=== PATIENT | female | born 2000 | race Caucasian/White ===

== ENCOUNTER 2021-01-12 12:45 | Emergency (ER) | payer SELFPAY ==
[~2021-01-12] VITALS: Ht 157.5 cm; Wt 65.0 kg
[2021-01-12 15:18] LABS: BASOPHILS % 0.3 % (0.0-2.0); EOSINOPHILS % 1.1 % (0.0-5.0); HEMATOCRIT. 38.3 % (36.0-48.0); HEMOGLOBIN. 12.5 g/dL (12.0-16.0); LYMPHOCYTES % 19.8 % (20.0-50.0); MEAN CORPUSCULAR HEMOGLOBIN 26.2 pg (28.0-32.0); MEAN CORPUSCULAR VOLUME 80.1 fL (81.0-99.0); MEAN PLATELET VOLUME 9.1 fl (7.4-10.4); MONOCYTES % 8.5 % (2.0-8.0); NEUTROPHILS % 70.3 % (40.0-76.0); PLATELET 348 x1000/uL (130-400); RED BLOOD CELL COUNT 4.78 mill/uL (4.2-5.4); RED CELL DISTRIBUTION WIDTH 17.1 % (11.6-14.6)
[2021-01-12 15:23] LABS: CHLORIDE 105 mEq/L (98-107)
[2021-01-12 15:26] LABS: ETHANOL BLOOD < 10 mg/dL
[2021-01-12] MEDS ORDERED: LORAZEPAM 2MG/ML CPJ IV ONE (16:00)
[2021-01-12] MEDS ORDERED: SODIUM CHLORIDE 0.9% 1,000 ML IV ONE (16:00)
[2021-01-12 16:10] LABS: HCG SCREEN NEGATIVE
[2021-01-12 16:15] LABS: *BARBITURATES SCREEN URINE NEGATIVE (NEGATIVE); *BENZODIAZEPINES SCREEN URINE NEGATIVE (NEGATIVE); *COCAINE SCREEN URINE NEGATIVE (NEGATIVE); OPIATES URINE SCREEN NEGATIVE (NEGATIVE)
[2021-01-12 16:16] LABS: PHENCYCLIDINE URINE SCREEN NEGATIVE (NEGATIVE)
[2021-01-12 16:24] LABS: METHADONE URINE SCREEN NEGATIVE (NEGATIVE)
[2021-01-12 16:27] LABS: *AMPHETAMINES SCREEN URINE PRESUMTIVE POSITIVE (NEGATIVE); CANNABINOID URINE SCREEN PRESUMTIVE POSITIVE (NEGATIVE)
[2021-01-12] MEDS ORDERED: POTASSIUM CHLORIDE 20MEQ TABLET SR PO ONE (16:30)
[2021-01-12 18:49] VITALS: BP 120/83
== END 2021-01-12 18:50 | disposition home or self-care (01) ==
LOC: ER 12:45
DX: F15.129 Other stimulant abuse with intoxication, unspecified (principal); F12.129 Cannabis abuse with intoxication, unspecified; E87.6 Hypokalemia; R03.0 Elevated blood-pressure reading, without diagnosis of hypertension; R00.0 Tachycardia, unspecified; Z32.02 Encounter for pregnancy test, result negative; Z71.51 Drug abuse counseling and surveillance of drug abuser
CPT/HCPCS: 36415; 71045; 80053; 80305; 80320; 81025; 84703; 85025; 93005; 96361; 96374; 99285; J2060; J7030; Z7610; G0480

== ENCOUNTER 2021-02-27 17:49 | Emergency (ER) | payer SELFPAY ==
[~2021-02-27] VITALS: Ht 152.4 cm; Wt 55.0 kg
[2021-02-27 20:53] LABS: CLARITY URINE CLOUDY (CLEAR); COLOR URINE YELLOW (YELLOW); KETONES URINE 1+ (NEGATIVE); LEUKOCYTE ESTERASE URINE NEGATIVE (NEGATIVE); NITRITE URINE NEGATIVE (NEGATIVE); OCCULT BLOOD URINE TRACE (NEGATIVE); PH URINE 5.5 (4.5-8.0); PROTEIN URINE TRACE (NEGATIVE); SPECIFIC GRAVITY URINE 1.033 (1.005-1.030); UROBILINOGEN URINE 0.2 E.U./dL (0.2-1.0)
[2021-02-27 21:01] LABS: BASOPHILS % 0.4 % (0.0-2.0); EOSINOPHILS % 0.3 % (0.0-5.0); HEMATOCRIT. 34.2 % (36.0-48.0); HEMOGLOBIN. 11.3 g/dL (12.0-16.0); LYMPHOCYTES % 25.4 % (20.0-50.0); MEAN CORPUSCULAR HEMOGLOBIN 27.3 pg (28.0-32.0); MEAN CORPUSCULAR VOLUME 82.8 fL (81.0-99.0); MEAN PLATELET VOLUME 8.9 fl (7.4-10.4); MONOCYTES % 5.9 % (2.0-8.0); PLATELET 308 x1000/uL (130-400); RED BLOOD CELL COUNT 4.13 mill/uL (4.2-5.4); RED CELL DISTRIBUTION WIDTH 16.7 % (11.6-14.6)
[2021-02-27 21:02] LABS: *BARBITURATES SCREEN URINE NEGATIVE (NEGATIVE); *BENZODIAZEPINES SCREEN URINE NEGATIVE (NEGATIVE); *COCAINE SCREEN URINE NEGATIVE (NEGATIVE)
[2021-02-27 21:03] LABS: METHADONE URINE SCREEN NEGATIVE (NEGATIVE); OPIATES URINE SCREEN NEGATIVE (NEGATIVE); PHENCYCLIDINE URINE SCREEN NEGATIVE (NEGATIVE)
[2021-02-27 21:05] LABS: *AMPHETAMINES SCREEN URINE NEGATIVE (NEGATIVE)
[2021-02-27 21:07] LABS: CHLORIDE 107 mEq/L (98-107)
[2021-02-27 21:11] LABS: PROTHROMBIN TIME 10.9 sec (9.6-11.0)
[2021-02-27 21:14] LABS: ETHANOL BLOOD < 10 mg/dL
[2021-02-27] MEDS ORDERED: CEFTRIAXONE 1 G PREMIX 50 ML IV ONE (21:15)
[2021-02-27 21:17] LABS: CANNABINOID URINE SCREEN PRESUMTIVE POSITIVE (NEGATIVE)
[2021-02-27] MEDS ORDERED: KETOROLAC 30MG/ML VIAL IV ONE (22:15)
[2021-02-27] MEDS ORDERED: SODIUM CHLORIDE 0.9% 1,000 ML IV ONE (22:15)
[2021-02-27] MEDS ORDERED: LIDOCAINE HCL 1% 20ML VIAL (Pyxis) INJ INFIL ONE (23:30)
[2021-02-27] MEDS ORDERED: CEFTRIAXONE SODIUM 1 G/VIAL IM ONE (23:30)
[2021-02-27 23:32] VITALS: BP 136/91
[2021-02-27] MEDS ORDERED: OMEP20CA14 MT (23:37)
[2021-02-27] MEDS ORDERED: DOXY100C2 MT (23:37)
== END 2021-02-27 23:46 | disposition home or self-care (01) ==
LOC: ER 17:49
DX: R10.13 Epigastric pain (principal); R10.2 Pelvic and perineal pain; Z20.2 Contact with and (suspected) exposure to infections with a predominantly sexual mode of transmission; R03.0 Elevated blood-pressure reading, without diagnosis of hypertension; D64.9 Anemia, unspecified
CPT/HCPCS: 36415; 76705; 76830; 76856; 80053; 80305; 80320; 81003; 81025; 83690; 85025; 85610; 93005; 96365; 96375; 99285; J0696; J1885; J3490; J7030; G0480

== ENCOUNTER 2021-03-15 17:40 | Emergency (ER) | payer MEDICAID ==
[~2021-03-15] VITALS: Ht 154.9 cm; Wt 61.0 kg
[~2021-03-15 17:40] MED LIST: DOXY100C2 MT; OMEP20CA14 MT
[2021-03-15 19:58] VITALS: BP 126/79
[2021-03-15 21:38] LABS: CLARITY URINE CLEAR (CLEAR); COLOR URINE YELLOW (YELLOW); KETONES URINE NEGATIVE (NEGATIVE); LEUKOCYTE ESTERASE URINE NEGATIVE (NEGATIVE); NITRITE URINE NEGATIVE (NEGATIVE); OCCULT BLOOD URINE NEGATIVE (NEGATIVE); PH URINE 5.5 (4.5-8.0); PROTEIN URINE NEGATIVE (NEGATIVE); SPECIFIC GRAVITY URINE 1.017 (1.005-1.030); UROBILINOGEN URINE 0.2 E.U./dL (0.2-1.0)
[2021-03-18 06:08] LABS: NEISSERIA GONORRHOEAE NAA Negative (Negative)
== END 2021-03-15 22:35 | disposition home or self-care (01) ==
LOC: ER 17:40
DX: R10.2 Pelvic and perineal pain (principal); R30.0 Dysuria; Z86.19 Personal history of other infectious and parasitic diseases
CPT/HCPCS: 76830; 76856; 81003; 81025; 87491; 87591; 99284

== ENCOUNTER 2021-03-17 02:22 | Emergency (ER) | payer MEDICAID ==
[~2021-03-17] VITALS: Ht 152.4 cm; Wt 52.0 kg
[2021-03-17] MEDS ORDERED: AMPICILLIN SOD/SULBACTAM NA 3 G in SODIUM CHLORIDE 0.9% 100 ML IV SCH (03:30)
[2021-03-17] MEDS ORDERED: MORPHINE SULFATE 2 MG/ML CPJ (NOT FOR IM USE) IV ONE (03:30)
[2021-03-17] MEDS ORDERED: DOXYCYCLINE 100 MG in DEXT 5% WATER 100 ML IV SCH (03:30)
[2021-03-17 04:00] LABS: BASOPHILS % 0.4 % (0.0-2.0); EOSINOPHILS % 0.1 % (0.0-5.0); HEMATOCRIT. 32.4 % (36.0-48.0); HEMOGLOBIN. 10.7 g/dL (12.0-16.0); LYMPHOCYTES % 11.4 % (20.0-50.0); MEAN CORPUSCULAR VOLUME 82.2 fL (81.0-99.0); MEAN PLATELET VOLUME 8.8 fl (7.4-10.4); MONOCYTES % 9.5 % (2.0-8.0); NEUTROPHILS % 78.6 % (40.0-76.0); PLATELET 293 x1000/uL (130-400); RED BLOOD CELL COUNT 3.94 mill/uL (4.2-5.4); RED CELL DISTRIBUTION WIDTH 15.5 % (11.6-14.6)
[2021-03-17 04:08] LABS: CHLORIDE 106 mEq/L (98-107)
[2021-03-17 04:11] LABS: PROTHROMBIN TIME 10.6 sec (9.6-11.0)
[2021-03-17 04:23] LABS: HCG SCREEN NEGATIVE
[2021-03-17 05:25] LABS: CLARITY URINE CLEAR (CLEAR); COLOR URINE YELLOW (YELLOW); KETONES URINE NEGATIVE (NEGATIVE); LEUKOCYTE ESTERASE URINE TRACE (NEGATIVE); NITRITE URINE NEGATIVE (NEGATIVE); OCCULT BLOOD URINE NEGATIVE (NEGATIVE); PH URINE 7.5 (4.5-8.0); PROTEIN URINE NEGATIVE (NEGATIVE); SPECIFIC GRAVITY URINE 1.018 (1.005-1.030)
[2021-03-17] MEDS ORDERED: DOXY100C2 MT (05:54)
[2021-03-17] MEDS ORDERED: TOPUD MT (05:54)
[2021-03-17] MEDS ORDERED: METR-167 MT (06:10)
[2021-03-17 07:25] VITALS: BP 118/72
[2021-03-21 08:08] LABS: NEISSERIA GONORRHOEAE NAA Negative (Negative)
== END 2021-03-17 07:42 | disposition home or self-care (01) ==
LOC: ER 02:22
DX: R10.2 Pelvic and perineal pain (principal); F15.10 Other stimulant abuse, uncomplicated; Z79.899 Other long term (current) drug therapy
CPT/HCPCS: 36415; 74176; 80053; 81003; 84703; 85025; 85610; 87210; 87491; 87591; 96365; 96366; 96368; 99284; J0295; J2270; J3490; J7050; J7060; Z7610; 96367

== ENCOUNTER 2021-04-02 21:29 | Emergency (ER) | payer MEDICAID ==
[~2021-04-02] VITALS: Ht 160 cm; Wt 73.0 kg
[~2021-04-02 21:29] MED LIST changes: +METR-167 MT; +TOPUD MT
[2021-04-02] MEDS ORDERED: NAPR-1176 MT (22:13)
[2021-04-02] MEDS ORDERED: IBUPROFEN 600MG TABLET PO ONE (22:15)
[2021-04-03 00:03] VITALS: BP 122/74
== END 2021-04-02 23:00 | disposition home or self-care (01) ==
LOC: ER 21:29
DX: R51.9 Headache, unspecified (principal); M62.838 Other muscle spasm; F17.290 Nicotine dependence, other tobacco product, uncomplicated; F15.10 Other stimulant abuse, uncomplicated; Z79.899 Other long term (current) drug therapy
CPT/HCPCS: 81025; 99282